=== PATIENT | female | born 1990 | race Caucasian/White ===

== ENCOUNTER 2017-07-03 12:09 | Emergency (ER) | payer OTHER ==
[~2017-07-03] VITALS: Ht 157.5 cm; Wt 66.7 kg
--- NOTE | 2017-07-03 12:40 | NUR ---
NO ANSWER IN ER LOBBY
--- NOTE | 2017-07-03 12:53 | NUR ---
NO ANSWER IN ER LOBBY--
[2017-07-03 12:55] VITALS: BP 127/84
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
--- NOTE | 2017-07-03 14:02 | NUR ---
ER MD DR BLACKBURN EVALUATING PT AT BEDSIDE.
[2017-07-03] MEDS ORDERED: traMADol 50 MG TAB PO ONE (14:10)
--- NOTE | 2017-07-03 14:43 | NUR ---
PT BACK FROM CT.
--- NOTE | 2017-07-03 14:58 | NUR ---
RESTING WITH OU CLOSED, NO GRIMACE NO MOAN---LAYING ON LEFT SIDE WITH BLANKET----WILL CONTINUE TO OBSERVE FOR PAIN CONTROL---AWAITS CT READ
--- NOTE | 2017-07-03 15:13 | NUR ---
Patient appears to be resting comfortably in bed. Vital Signs within normal limits. Respirations even and unlabored.WILL CONTINUE TO MONITOR.
[2017-07-03 15:36] VITALS: BP 119/64
--- NOTE | 2017-07-03 15:37 | NUR ---
Patient discharged with v/s stable. Written and verbal after care instructions given and explained. Patient alert, oriented and verbalized understanding of instructions. Ambulatory with steady gait. All questions addressed prior to discharge. ID band removed. Patient advised to follow up with PMD. Rx of MOTRIN AND TRAMADOL given. Patient educated on indication of medication including possible reaction and side effects. Opportunity to ask questions provided and answered.
== END 2017-07-03 15:37 | disposition home or self-care (01) ==
LOC: MED 12:09
DX: R51 Headache (principal); R03.0 Elevated blood-pressure reading, without diagnosis of hypertension; R50.9 Fever, unspecified; Z86.73 Personal history of transient ischemic attack (TIA), and cerebral infarction without residual deficits; Z88.8 Allergy status to other drugs, medicaments and biological substances
CPT/HCPCS: 70450; 99284

== ENCOUNTER 2017-09-17 16:41 | Emergency (ER) | payer OTHER ==
[~2017-09-17] VITALS: Ht 154.9 cm; Wt 71.2 kg
[2017-09-17 16:49] VITALS: BP 138/77
--- NOTE | 2017-09-17 18:38 | NUR ---
PT AMBULATED TO [place]
--- NOTE | 2017-09-17 18:43 | NUR ---
DR SWAIN AT BEDSIDE
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
[2017-09-17 19:08] VITALS: BP 138/77
--- NOTE | 2017-09-17 19:09 | NUR ---
Patient discharged with v/s stable. Written and verbal after care instructions given and explained. Patient alert, oriented and verbalized understanding of instructions. Ambulatory with steady gait. All questions addressed prior to discharge. ID band removed. Patient advised to follow up with PMD. Rx of NAPROXYN given. Patient educated on indication of medication including possible reaction and side effects. Opportunity to ask questions provided and answered.
== END 2017-09-17 19:08 | disposition home or self-care (01) ==
LOC: MED 16:41
DX: M72.2 Plantar fascial fibromatosis (principal); S42.001G Fracture of unspecified part of right clavicle, subsequent encounter for fracture with delayed healing; Z86.73 Personal history of transient ischemic attack (TIA), and cerebral infarction without residual deficits; Z88.8 Allergy status to other drugs, medicaments and biological substances; V89.2XXD Person injured in unspecified motor-vehicle accident, traffic, subsequent encounter
CPT/HCPCS: 73630; 99284

== ENCOUNTER 2021-02-01 19:15 | Emergency (ER) | payer OTHER ==
[~2021-02-01] VITALS: Ht 154.9 cm; Wt 68.0 kg
[2021-02-01 19:15] VITALS: BP 140/65
--- NOTE | 2021-02-01 19:18 | NUR ---
TO LOBBY A/W BED AMBULATORY
[2021-02-01] MEDS ORDERED: IBUPROFEN 600 MG TAB PO ONE (20:55)
[2021-02-01 21:36] VITALS: BP 132/79
[2021-02-01] MEDS ORDERED: IBUP-2213 PO (21:50)
--- NOTE | 2021-02-01 22:11 | NUR ---
d/c with VSS. d/c education given. pt given copy of CT results. rx of motrin given.
== END 2021-02-01 22:11 | disposition home or self-care (01) ==
LOC: MED 19:15
DX: S09.90XA Unspecified injury of head, initial encounter (principal); R11.0 Nausea; R51.9 Headache, unspecified; Z86.73 Personal history of transient ischemic attack (TIA), and cerebral infarction without residual deficits; W01.0XXA Fall on same level from slipping, tripping and stumbling without subsequent striking against object, initial encounter; Y93.89 Activity, other specified; Y92.89 Other specified places as the place of occurrence of the external cause; Y99.8 Other external cause status
CPT/HCPCS: 70450; 99284